=== PATIENT | female | born 1970 | race Caucasian/White ===

== ENCOUNTER 2017-02-09 17:48 | Emergency (ER) | payer OTHER ==
[~2017-02-09] VITALS: Ht 165.1 cm; Wt 113.4 kg
[2017-02-09] MEDS ORDERED: KETOROLAC TROME10 MG PO (18:17)
== END 2017-02-09 18:40 | disposition home or self-care (01) ==
LOC: ED 17:48
DX: S93.402A Sprain of unspecified ligament of left ankle, initial encounter (principal); X37.1XXA Tornado, initial encounter; Y92.828 Other wilderness area as the place of occurrence of the external cause
CPT/HCPCS: 73610; 99283